=== PATIENT | male | born 1995 | race Caucasian/White ===

== ENCOUNTER 2017-02-03 12:56 | Emergency (ER) | payer OTHER ==
[~2017-02-03] VITALS: Ht 185.4 cm; Wt 129.3 kg
[2017-02-03 12:58] VITALS: BP 131/73
== END 2017-02-03 14:01 | disposition home or self-care (01) ==
LOC: ER 13:00
DX: B00.1 Herpesviral vesicular dermatitis (principal)
CPT/HCPCS: 99281; A4606; Z7610; Z7502

== ENCOUNTER 2017-04-22 11:53 | Emergency (ER) | payer OTHER ==
[~2017-04-22] VITALS: Ht 182.9 cm; Wt 117.9 kg
[2017-04-22 12:00] VITALS: BP 119/68
== END 2017-04-22 12:15 | disposition home or self-care (01) ==
LOC: ER 11:54
DX: J02.9 Acute pharyngitis, unspecified (principal)
CPT/HCPCS: 99283; A4606; Z7610